=== PATIENT | female | born 1975 | race Caucasian/White ===

== ENCOUNTER 2024-07-11 20:56 | Outpatient (CLI) | payer BC, SELFPAY | END 2024-07-11 20:57 | disposition home or self-care (01) | PROVIDERS: PCP Internal Medicine; Visit Provider Internal Medicine | DX: G47.33 Obstructive sleep apnea (adult) (pediatric) (principal); R06.83 Snoring; G47.10 Hypersomnia, unspecified | CPT/HCPCS: 95810 ==